=== PATIENT | female | born 1985 | race Two or more races ===

== ENCOUNTER 2016-11-16 07:58 | Emergency (ER) | payer SELFPAY ==
[2016-11-16 08:36] VITALS: TEMP 98.1; BMI 34.7
--- NOTE | 2016-11-16 08:44 | PDOC ---
History of Present Illness - General History Source: Patient Exam Limitations: No Limitations - History of Present Illness Initial Comments: 11/16/16 10:50 The patient is a 31 year old approximately 15 week female (), with a significant past medical history of asthma, who presents to the emergency department complaining of abdominal pain for approximately 45 minutes. The patient reports she was at work standing, when suddenly she began to experience abdominal pain epigastrically. Since then, the pain has progressed to the suprapubic area. She denies any associated vaginal discharge or bleeding. She denies N/V today. She denies any diarrhea or constipation. Patient states she saw her OB yesterday, during which she had an US which was normal. She denies any recent fever, chills, cough, headache, or dizziness. She denies any dysuria , hematuria, frequency, or urgency. She denies any recent travel or sick contacts. Patient reports her last menstrual period was 07/30/16. Patient reports she woke up feeling fine this morning. 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 Non smoker. No ETOH or drug use reported. <Mulu Christine - Last Filed: 11/16/16 10:50> <Rudy Montes De Oca - Last Filed: 11/16/16 12:49> - General Chief Complaint: Pain, Acute Stated Complaint: abd pain, 15 weeks Time Seen by Provider: 11/16/16 08:36 Past History <Mulu Christine - Last Filed: 11/16/16 10:50> - Past Medical History Other medical history: denies - Immunization History Immunization Up to Date: Yes - Psycho/Social/Smoking Cessation Hx Suicidal Ideation: No Smoking History: Never smoked Information on smoking cessation initiated: No Hx Alcohol Use: No Drug/Substance Use Hx: No <César Montes De Ocamna - Last Filed: 11/16/16 12:49> - Past Medical History Allergies/Adverse Reactions: Allergies Allergy/AdvReac Type Severity Reaction Status Date / Time No Known Allergies Allergy Verified 11/16/16 08:49 Home Medications: Ambulatory Orders NK [No Known Home Medication] 11/16/16 Review of Systems - Review of Systems Able to Perform ROS?: Yes Comments:: 11/16/16 10:50 GENERAL/CONSTITUTIONAL: No fever or chills. No weakness. HEAD, EYES, EARS, NOSE AND THROAT: No change in vision. No ear pain or discharge. No sore throat. CARDIOVASCULAR: No chest pain or SOB RESPIRATORY: No cough, wheezing, or hemoptysis GASTROINTESTINAL: + abdominal pain, no diarrhea or constipation, N/V. GENITOURINARY: No dysuria, frequency, or change in urination. PELVIC: No vaginal discharge or bleeding. MUSCULOSKELETAL: No joint or muscle swelling or pain. No neck or back pain. SKIN: No rash NEUROLOGIC: No headache, vertigo, loss of consciousness, or change in strength/ sensation. ENDOCRINE: No increased thirst. No abnormal weight change. HEMATOLOGIC/LYMPHATIC: No anemia, easy bleeding, or history of blood clots. ALLERGIC/IMMUNOLOGIC: No hives or skin allergy. <Mulu Christine - Last Filed: 11/16/16 10:50> *Physical Exam - Vital Signs Last Vital Signs Temp Pulse Resp BP Pulse Ox 98.1 F 81 20 134/73 98 11/16/16 08:00 11/16/16 08:00 11/16/16 08:00 11/16/16 08:00 11/16/16 08:00 - Physical Exam Comments: 11/16/16 10:50 GENERAL: On exam pt is tearful, but in no acute distress. Obese. Awake, alert, and fully oriented.. HEAD: No signs of trauma EYES: PERRLA, EOMI, sclera anicteric, conjunctiva clear ENT: Auricles normal inspection, hearing grossly normal, nares patent, oropharynx clear without exudates. Moist mucosa NECK: Normal ROM, supple, no lymphadenopathy, JVD, or masses LUNGS: Breath sounds equal, clear to auscultation bilaterally. No wheezes, and no crackles HEART: Regular rate and rhythm, normal S1 and S2, no murmurs, rubs or gallops ABDOMEN: Yes: +Suprapubic tenderness to palpation with a gravid uterus to about 15 weeks. No ttp to LLQ or RLQ. Soft, normoactive bowel sounds. No guarding, no rebound. No masses PELVIC: Defer to US. EXTREMITIES: Normal range of motion, no edema. No clubbing or cyanosis. No cords, erythema, or tenderness NEUROLOGICAL: Normal speech, cranial nerves intact, negative pronator drift, 5/ 5 strength in all 4 extremities, normal sensation to light touch in all 4 extremities, normal cerebellar exam, normal gait, normal reflexes and tone SKIN: Warm, Dry, normal turgor, no rashes or lesions noted. <ChristineGiomilsy - Last Filed: 11/16/16 10:50> - Vital Signs Last Vital Signs Temp Pulse Resp BP Pulse Ox 98.1 F 81 20 134/73 98 11/16/16 08:00 11/16/16 08:00 11/16/16 08:00 11/16/16 08:00 11/16/16 08:00 <CarlieRudy joseph - Last Filed: 11/16/16 12:49> ED Treatment Course - LABORATORY CBC & Chemistry Diagram: 11/16/16 08:51 11/16/16 09:03 - ADDITIONAL ORDERS Additional order review: Laboratory Results 11/16/16 11/16/16 11/16/16 09:03 09:03 08:51 INR PTT (Actin FS) Sodium 136 Potassium 4.1 Chloride 107 Carbon Dioxide 22 Anion Gap 7 L BUN 5 L Creatinine 0.5 L Creat Clearance w eGFR > 60 Random Glucose 77 Calcium 8.9 Magnesium 1.9 Total Bilirubin 0.3 AST 21 ALT 17 Alkaline Phosphatase 31 L Troponin I < 0.02 Total Protein 6.8 Albumin 3.2 L Lipase 137 Beta HCG, Quant 17594.7 Blood Type B POSITIVE Antibody Screen Negative 11/16/16 08:51 INR 1.09 PTT (Actin FS) 31.3 Sodium Potassium Chloride Carbon Dioxide Anion Gap BUN Creatinine Creat Clearance w eGFR Random Glucose Calcium Magnesium Total Bilirubin AST ALT Alkaline Phosphatase Troponin I Total Protein Albumin Lipase Beta HCG, Quant Blood Type Antibody Screen 11/16/16 08:51 RBC 3.99 MCV 90.3 MCHC 34.9 RDW 14.2 MPV 7.3 L Neutrophils % 68.4 Lymphocytes % 22.3 Monocytes % 8.3 Eosinophils % 0.8 Basophils % 0.2 - RADIOLOGY Radiograph Interpretation: 11/16/16 10:36 EXAM: Abdomen US INTERPRETED BY: Dr. Charles REVIEWED BY: Dr. Silverio IMPRESSION: Unremarkable examination . EXAM: Obstetrics US INTERPRETED BY: Dr. Newell REVIEWED BY: Dr. Silverio IMPRESSION: Single live intrauterine gestation of 16 weeks 3 days gestational age with total placenta previa. Clinical correlation and follow-up recommended. Please see above discussion. EXAM: Bladder US INTERPRETED BY: Dr. Charles REVIEWED BY: Dr. Silverio IMPRESSION: Nonvisualization of the appendix. No free fluid or fluid collection is identified in the right lower quadrant. Correlate clinically for further evaluation - Medications Given in the ED: ED Medications Discontinued Medications Generic Name Dose Route Start Last Admin Trade Name Hudson PRN Reason Stop Dose Admin Acetaminophen 1,000 mg 11/16/16 08:53 11/16/16 09:36 Tylenol - PO 11/16/16 08:54 Not Given ONCE ONE Acetaminophen 1,000 mg 11/16/16 09:37 11/16/16 09:38 Ofirmev Injection - IVPB 11/16/16 09:38 1,000 mg NOW ONE Administration <Mulu Christine - Last Filed: 11/16/16 10:50> - LABORATORY CBC & Chemistry Diagram: 11/16/16 08:51 11/16/16 09:03 <Rudy Montes De Oca - Last Filed: 11/16/16 12:49> Medical Decision Making - Medical Decision Making 11/16/16 9:39 31-year-old female presents at 16 weeks with abdominal pain this morning that started in her epigastric area and then radiated down to her suprapubic area. Patient denies vaginal bleeding. No trauma. Exam with epigastric and suprapubic tenderness to palpation. DDx includes placental abruption vs demise vs gastritis vs cholecystitis vs biliary colic. -US abdomen -US -labs -UA -IV tylenol -dispo 11/16/16 12:45 Ultrasound of abdomen unremarkable including normal gallbladder. Appendix was not visualized however patient is not tender in the right lower quadrant. Ultrasound of the reveals a single live intrauterine gestation at 16 weeks and 3 days with total placenta previa. Patient denies any vaginal bleeding. 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 I discussed the physical exam findings, ancillary test results and final diagnoses with the patient. I answered all of the patient's questions. The patient was satisfied with the care received and felt comfortable with the discharge plan and treatment plan. The patient will call her OB within 24 hours to arrange follow-up and will return to the Emergency Department with any new, persistent or worsening symptoms. text <Rudy Montes De Oca - Last Filed: 11/16/16 12:49> *DC/Admit/Observation/Transfer - Attestations Scribe Attestion: 11/16/16 10:50 Documentation prepared by Mulu Christine, acting as medical illustrator for Rudy Montes De Oca MD. <Mulu Christine - Last Filed: 11/16/16 10:50> - Discharge Dispostion Admit: No - Attestations Physician Attestion: 11/16/16 12:39 I, Dr. Rudy Montes De Oca MD, attest that this document has been prepared under my direction and personally reviewed by me in its entirety. I further attest, that it accurately reflects all work, treatment, procedures and medical decision -making performed by me. <Rudy Montes De Oca - Last Filed: 11/16/16 12:49> Diagnosis at time of Disposition: Abdominal pain Qualifiers: Abdominal location: unspecified location Qualified Code(s): R10.9 - Unspecified abdominal pain - Discharge Dispostion Disposition: HOME Condition at time of disposition: Stable - Patient Instructions Additional Instructions: Follow up with your OB doctor within 2-3 days. Return to the emergency department immediately if you have recurrent abdominal pain, vaginal bleeding, nausea, vomiting, headache, lower extremity swelling or any concerning symptoms. Print Language: GABONESE
[2016-11-16] MEDS ORDERED: ACETAMINOPHEN 500 MG TABLET (FP) PO ONE (08:53)
[2016-11-16] MEDS ORDERED: ACETAMINOPHEN 325 MG TABLET (FP) ONE (08:56)
[2016-11-16] MEDS ORDERED: ACETAMINOPHEN INJECTION 100 ML IVPB ONE (09:05)
[2016-11-16 09:16] LABS: BASOPHIL 0.2 % (0-2.0); EOSINOPHIL 0.8 % (0-4.5); MCH 31.5 pg (25.7-33.7); MCHC 34.9 g/dl (32.0-36.0); MEAN CELL VOLUME 90.3 fl (80-96); MEAN PLT VOLUME 7.3 fl (7.5-11.1); NEUTROPHILS 68.4 % (42.8-82.8); PLATELET COUNT 236 K/MM3 (134-434); RDW 14.2 % (11.6-15.6); WHITE BLOOD COUNT 7.4 K/mm3 (4.0-10.0)
[2016-11-16] MEDS ORDERED: ACETAMINOPHEN 1000 MG/100 ML VIAL (NON FORMULARY) IVPB ONE (09:37)
[2016-11-16 09:50] LABS: ALBUMIN 3.2 g/dl (3.4-5.0); ANION GAP 7 (8-16); BILIRUBIN,TOTAL 0.3 mg/dL (0.2-1.0); CALCIUM 8.9 mg/dL (8.5-10.1); CO2 22 mmol/L (21-32); CREATININE 0.5 mg/dL (0.55-1.02); GLUCOSE,RANDOM 77 mg/dL (74-106); SGPT/ALT 17 U/L (12-78); TOT PROT 6.8 g/dl (6.4-8.2)
[2016-11-16 09:54] LABS: ALK PHOS 31 U/L (45-117); TROPONIN I < 0.02 ng/ml (0.00-0.05)
[2016-11-16 09:54] LABS: INR 1.09 (0.82-1.09)
[2016-11-16 09:56] LABS: ACTIVATED PTT 31.3 SECONDS (26.9-34.4)
[2016-11-16 09:56] LABS: MAGNESIUM 1.9 mg/dL (1.8-2.4); SGOT/AST 21 U/L (15-37)
[2016-11-16 11:49] LABS: URINE APPEARANCE SLCLOUDY; URINE BILIRUBIN NEGATIVE (NEGATIVE); URINE BLOOD NEGATIVE (NEGATIVE); URINE COLOR YELLOW; URINE GLUCOSE (UA) NEGATIVE (NEGATIVE); URINE KETONE TRACE (NEGATIVE); URINE LEUK ESTERASE NEGATIVE (NEGATIVE); URINE NITRITE NEGATIVE (NEGATIVE); URINE PROTEIN NEGATIVE (NEGATIVE); URINE UROBILINOGEN NEGATIVE mg/dL (0.2-1.0)
[2016-11-16 12:15] VITALS: BP 113/70; PULSE 79
== END 2016-11-16 12:16 | disposition home or self-care (01) ==
LOC: JER 07:58
PROC: 3E033GC Introduction of Other Therapeutic Substance into Peripheral Vein, Percutaneous Approach (ICD-10-PCS; principal; 2016-11-16)
DX: O26.892 Other specified pregnancy related conditions, second trimester (principal); Z3A.15 15 weeks gestation of pregnancy; R10.9 Unspecified abdominal pain
CPT/HCPCS: 36415; 76700-TC; 76801-TC; 76856-TC; 80053; 81003; 83690; 83735; 84484; 84702; 85025; 85610; 85730; 86850; 86900; 86901; 99283-25

== ENCOUNTER 2021-07-29 08:06 | Emergency (ER) | payer OTHER ==
[2021-07-29 08:16] VITALS: BP 128/66; PULSE 76; TEMP 97.9; BMI 38.4
[2021-07-29] MEDS ORDERED: METHOCARBAMOL 500 MG TABLET PO ONE (08:22)
[2021-07-29] MEDS ORDERED: KETOROLAC TROMETHAMINE 60 MG/2 ML VIAL IM ONE (08:22)
[2021-07-29] MEDS ORDERED: KETOROLAC TROMETHAMINE 60 MG/2 ML VIAL ONE (08:24)
[2021-07-29] MEDS ORDERED: METHOCARBAMOL 500 MG TABLET ONE (08:24)
== END 2021-07-29 10:26 | disposition home or self-care (01) ==
LOC: JERFT 08:06
PROC: 3E023GC Introduction of Other Therapeutic Substance into Muscle, Percutaneous Approach (ICD-10-PCS; principal; 2021-07-29)
DX: S39.012A Strain of muscle, fascia and tendon of lower back, initial encounter (principal); X50.0XXA Overexertion from strenuous movement or load, initial encounter
CPT/HCPCS: 72070-TC-FY; 72100-TC-FY; 99285-25

== ENCOUNTER 2023-06-22 08:40 | Emergency (ER) | payer OTHER ==
[2023-06-22 09:04] VITALS: BMI 34.0
[2023-06-22] MEDS ORDERED: ACETAMINOPHEN INJECTION 100 ML IVPB ONE (09:40)
[2023-06-22] MEDS ORDERED: MECLIZINE HCL 25 MG TABLET (FP) ONE (09:41)
[2023-06-22] MEDS: MECLIZINE HCL 25 MG TABLET (FP) PO ONE (09:51)
[2023-06-22] MEDS: ACETAMINOPHEN 1000 MG/100 ML BAG IVPB ONE (09:51)
[2023-06-22] MEDS: SODIUM CHLORIDE 0.9% 500 ML INFUS.BAG IV ONE (09:51)
[2023-06-22 10:42] LABS: BASO % 0.2 % (0-2.0); EOS % 2.5 % (0-4.5); HEMOGLOBIN 13.3 GM/dL (10.7-15.3); LYMPH % 20.7 % (8-40); MCH 30.6 pg (25.7-33.7); MCHC 34.2 g/dl (32.0-36.0); MEAN CELL VOLUME 89.6 fl (80-96); MEAN PLT VOLUME 7.1 fl (7.5-11.1); MONO % 8.7 % (3.8-10.2); NEUT % 67.9 % (42.8-82.8); PLATELET COUNT 219 10^3/uL (134-434); RBC 4.35 M/mm3 (3.60-5.2); RDW 14.2 % (11.6-15.6)
[2023-06-22 11:12] LABS: CALCIUM 8.4 mg/dL (8.5-10.1)
[2023-06-22 11:13] LABS: ALBUMIN 3.2 g/dl (3.4-5.0); BLOOD UREA NITROGEN 14.8 mg/dL (7-18); MAGNESIUM 1.8 mg/dL (1.8-2.4)
[2023-06-22 11:16] LABS: CREATININE 0.6 mg/dL (0.55-1.3); PHOSPHOROUS 3.5 mg/dL (2.5-4.9)
[2023-06-22 11:17] LABS: BILIRUBIN,TOTAL 0.8 mg/dL (0.2-1); TOT PROT 6.3 g/dl (6.4-8.2)
[2023-06-22 12:22] VITALS: BP 118/73; PULSE 69; RESP 20; TEMP 98.9
== END 2023-06-22 12:22 | disposition home or self-care (01) ==
LOC: JER 08:40
PROC: 3E033NZ Introduction of Analgesics, Hypnotics, Sedatives into Peripheral Vein, Percutaneous Approach (ICD-10-PCS; principal; 2023-06-22)
DX: R42 Dizziness and giddiness (principal); R07.9 Chest pain, unspecified; M54.6 Pain in thoracic spine; M25.511 Pain in right shoulder; M25.512 Pain in left shoulder; Z20.822 Contact with and (suspected) exposure to COVID-19
CPT/HCPCS: 0241U-QW; 36415; 71046-TC-FY; 80053; 83735; 84100; 84484; 84703; 85025; 93005; 93010; 99285-25; J0131

== ENCOUNTER 2024-02-03 12:33 | Emergency (ER) | payer OTHER ==
[2024-02-03 12:42] VITALS: BP 122/86; PULSE 63; RESP 17; TEMP 98.2; BMI 34.5
[2024-02-03] MEDS ORDERED: ACETAMINOPHEN 1000 MG/100 ML BAG IVPB ONE (14:16)
[2024-02-03] MEDS ORDERED: ACETAMINOPHEN INJECTION 100 ML ONE (14:25)
== END 2024-02-03 15:40 | disposition left against medical advice (07) ==
LOC: JER 12:33
DX: Z53.21 Procedure and treatment not carried out due to patient leaving prior to being seen by health care provider (principal)
CPT/HCPCS: 99281-25

== ENCOUNTER 2024-12-09 10:48 | Emergency (ER) | payer OTHER ==
[2024-12-09 10:54] VITALS: BP 110/76; PULSE 62; RESP 20; TEMP 98.3; BMI 35.4
[2024-12-09] MEDS ORDERED: KETOROLAC TROMETHAMINE 15 MG/ML VIAL ONE (11:19)
[2024-12-09] MEDS ORDERED: METOCLOPRAMIDE HCL INJECTION 10 MG/2 ML VIAL ONE (11:19)
[2024-12-09] MEDS: SODIUM CHLORIDE 1,000 ML IV STA (12:20)
[2024-12-09] MEDS: METOCLOPRAMIDE HCL INJECTION 10 MG/2 ML VIAL IVPUSH ONE (12:21)
[2024-12-09] MEDS: KETOROLAC TROMETHAMINE 15 MG/ML VIAL IVPUSH ONE (12:21)
== END 2024-12-09 12:59 | disposition home or self-care (01) ==
LOC: JER 10:48
PROC: 3E0333Z Introduction of Anti-inflammatory into Peripheral Vein, Percutaneous Approach (ICD-10-PCS; principal; 2024-12-09)
PROC: 3E033GC Introduction of Other Therapeutic Substance into Peripheral Vein, Percutaneous Approach (ICD-10-PCS; 2024-12-09)
PROC: 3E033GC Introduction of Other Therapeutic Substance into Peripheral Vein, Percutaneous Approach (ICD-10-PCS; 2024-12-09)
PROC: 3E0337Z Introduction of Electrolytic and Water Balance Substance into Peripheral Vein, Percutaneous Approach (ICD-10-PCS; 2024-12-09)
DX: G43.909 Migraine, unspecified, not intractable, without status migrainosus (principal); R11.0 Nausea
CPT/HCPCS: 99284-25